=== PATIENT | female | born 1980 ===

== ENCOUNTER 2022-11-27 05:55 | Day surgery (SDC) | payer OTHER ==
[~2022-11-27] VITALS: Ht 172.7 cm; Wt 72.6 kg
[~2022-11-27 05:55] MED LIST: CLARITI PO
== END 2022-11-27 13:10 | disposition home or self-care (01) ==
LOC: CIR.AMB 05:55
PROVIDERS: ATTEND Colon & Rectal Surgery
DX: K64.4 Residual hemorrhoidal skin tags (principal); K64.8 Other hemorrhoids; K64.2 Third degree hemorrhoids; I10 Essential (primary) hypertension; Z20.822 Contact with and (suspected) exposure to COVID-19